=== PATIENT | female | born 1930 | race Caucasian/White ===

== ENCOUNTER 2017-04-02 10:30 | Observation (INO) | payer MEDICARE ==
[~2017-04-02] VITALS: Ht 154.9 cm; Wt 68.0 kg
[2017-04-02] VITALS (7 sets, daily range): BP systolic 116–158; BP diastolic 62–75; PULSE 67–75; RESP 16–18; TEMP 98.2–100.1; O2SAT 92–99
[~2017-04-02 10:30] MED LIST: ASPI81TA82 PO; ATEN-100 PO; ATOR10TA PO; CILO100T PO; DIOV160T60 PO; FLUT50SP EACH NARE; HYDR-2768 PO; LEXA10TA PO; NAME5TAB2 PO; NIFE1TAB85 PO; PROT40TA PO; SIMV20TA PO; TRAZ150T75 PO; [UNRECOGNIZED DRUG - OTHER]
[2017-04-02] MEDS ORDERED: ASPI81CH CHEW (10:48)
[2017-04-02] MEDS ORDERED: CILO100T PO (10:48)
[2017-04-02] MEDS ORDERED: CART120C PO (10:48)
[2017-04-02] MEDS ORDERED: ALPR.5 PO (10:48)
[2017-04-02] MEDS ORDERED: DIOV160T6 PO (10:48)
[2017-04-02] MEDS ORDERED: TRAZ100T6 PO (10:48)
[2017-04-02] MEDS ORDERED: LEXA20TA PO (10:48)
[2017-04-02] MEDS ORDERED: OXYB5TAB10 PO (10:48)
[2017-04-02] MEDS ORDERED: PROT40TA PO (10:48)
[2017-04-02] MEDS ORDERED: ATEN25TA PO (10:48)
[2017-04-02] MEDS ORDERED: SODIUM CHLORIDE 0.9% FLUSH 5 ML FLUSH IV FLUSH PRN (11:00)
[2017-04-02 11:15] LABS: AUTOMATED NEUTROPHIL # 10.1 TH/MM3 (1.8-7.7); BASOPHIL # 0.1 TH/MM3 (0-0.2); BASOPHIL % 0.7 % (0.0-2.0); EOSINOPHIL # 0.1 TH/MM3 (0-0.4); EOSINOPHIL % 0.5 % (0.0-4.0); HEMATOCRIT 32.6 % (35.0-46.0); HEMO FLAGS DIFF FINAL; LYMPH % 12.5 % (9.0-44.0); LYMPHOCYTE # 1.6 TH/MM3 (1.0-4.8); MEAN CELL VOLUME 92.1 FL (80.0-100.0); MEAN CORPUSCULAR HEMOGLOBIN 29.9 PG (27.0-34.0); MEAN CORPUSCULAR HGB CONC 32.4 % (32.0-36.0); MONO % 6.2 % (0.0-8.0); NEUT % 80.1 % (16.0-70.0); PLATELET COUNT 199 TH/MM3 (150-450); RED BLOOD COUNT 3.54 MIL/MM3 (4.00-5.30); RED CELL DISTRIBUTION WIDTH 14.1 % (11.6-17.2); WHITE BLOOD COUNT 12.6 TH/MM3 (4.0-11.0)
--- NOTE | 2017-04-02 11:25 | RADRPT ---
EXAM DATE/TIME: 04/02/2017 11:06 [facility] COMPARISON: ANKLE LEFT COMPLETE ([id number]), November 11, 2014, 18:57. INDICATIONS : Left hand pain/bruising/swelling post fall. MEDICAL HISTORY : Hypercholesterolemia. Diverticulitis. Gastroesophageal reflux disease. Hypertension. Ulcer. Arthr itis. SURGICAL HISTORY : Tonsillectomy. Appendectomy. Hysterectomy. ENCOUNTER: Initial ACUITY: 1 day PAIN SCORE: 8/10 LOCATION: Left hand FINDINGS: The osseous structures hand demonstrate advanced osteoarthritic changes of the carpometacarpal joint the base of the thumb and the distal interphalangeal joints of the first through fifth digits. Note is made of a moderately displaced fracture of the scaphoid. Note is made of an impacted, dorsally angulated fracture of the distal radius. Note is made of a mildly displaced fracture of the ulnar styloid. CONCLUSION: 1. Mildly displaced fracture of the scaphoid. 2. Impacted, dorsally angulated fracture of the distal radius. 3. Nondisplaced fracture of the ulnar styloid. Jose Bedolla MD on April 02, 2017 at 11:22 Board Certified Radiologist. This report was verified electronically.
--- NOTE | 2017-04-02 11:26 | RADRPT ---
EXAM DATE/TIME: 04/02/2017 11:07 [facility] COMPARISON: HAND LEFT COMPLETE ([id number]), April 02, 2017, 11:06. INDICATIONS : Left wrist pain/bruising/swelling post fall. MEDICAL HISTORY : Hypercholesterolemia. Diverticulitis. Gastroesophageal reflux disease. Arthritis. Ulcers. Hyperte nsion. SURGICAL HISTORY : Tonsillectomy. Appendectomy. Hysterectomy. ENCOUNTER: Initial ACUITY: 1 day PAIN SCORE: 7/10 LOCATION: Left wrist FINDINGS: There is a mildly displaced fracture of the scaphoid. There is a nondisplaced fracture of the ulnar styloid. There is a dorsally angulated, impacted fracture of the distal radius. Degenerative changes at the base of the thumb. CONCLUSION: 1. Fractures of the scaphoid, radius and ulnar styloid as above. Jose Bedolla MD on April 02, 2017 at 11:23 Board Certified Radiologist. This report was verified electronically.
[2017-04-02 11:39] LABS: ALT (GPT) 13 U/L (10-53)
[2017-04-02 11:41] LABS: ALKALINE PHOSPHATASE 79 U/L (45-117); TOTAL BILIRUBIN ADULT 0.8 MG/DL (0.2-1.0)
[2017-04-02 11:47] LABS: ANION GAP 9 MEQ/L (5-15); AST (GOT) 43 U/L (15-37); BICARBONATE 22.3 MEQ/L (21.0-32.0); BLOOD UREA NITROGEN 33 MG/DL (7-18); CHLORIDE 104 MEQ/L (98-107); GLOMERULAR FILTRATION RATE 27 ML/MIN (>89); SODIUM (NA) 135 MEQ/L (136-145)
--- NOTE | 2017-04-02 11:48 | RADRPT ---
EXAM DATE/TIME: 04/02/2017 11:20 [facility] COMPARISON: CT BRAIN W/O CONTRAST, November 11, 2014, 16:13. INDICATIONS : Fell last Saturday. Left posterior head pain. Altered mental status. RADIATION DOSE: 34.82 CTDIvol (mGy) MEDICAL HISTORY : Diverticulitis. Hypertension. SURGICAL HISTORY : Hysterectomy. ENCOUNTER: Initial ACUITY: 4 - 6 days PAIN SCALE: 0/10 LOCATION: cranial TECHNIQUE: Multiple contiguous axial images were obtained of the head. Using automated exposure control and adj ustment of the mA and/or kV according to patient size, radiation dose was kept as low as reasonably a chievable to obtain optimal diagnostic quality images. DICOM format image data is available electro nically for review and comparison. FINDINGS: CEREBRUM: Moderate cerebral atrophy. [id number] periventricular white matter hypodensities consistent wit h ischemic white matter demyelination. Nonspecific bilateral basal ganglia ossifications. The ventric les are normal for degree of atrophy. No evidence of midline shift, mass lesion, hemorrhage or acute infarction. No extra-axial fluid collections are seen. POSTERIOR FOSSA: The cerebellum and brainstem are intact. The 4th ventricle is midline. The cerebellopontine angle i s unremarkable. EXTRACRANIAL: The visualized portion of the orbits is intact. SKULL: The calvaria is intact. No evidence of skull fracture. CONCLUSION: 1. Senescent changes with periventricular small vessel ischemic white matter demyelination. 2. No acute intracranial abnormality. Heladio Adan MD on April 02, 2017 at 11:45 Board Certified Radiologist. This report was verified electronically.
[2017-04-02 11:49] LABS: POTASSIUM 4.6 MEQ/L (3.5-5.1)
[2017-04-02] MEDS ORDERED: SODIUM CHLOR 0.9% 1000 ML INJ 1,000 ML IV SCH (12:15)
--- NOTE | 2017-04-02 13:17 | PD ---
HPI Chief Complaint: Fall Time Seen by Provider: 10:43 Travel History International Travel<30 days: No Contact w/Intl Traveler<30days: No Traveled to known affect area: No History of Present Illness HPI This is an 86-year-old female who presents to the emergency department having had a fall 3 evenings ago hitting her head and injuring her left wrist and hand. Her daughter tried to take her to the emergency department but she refused. She's had persistent pain, swelling, moderate severity, constant, with no associated weakness or numbness in the hand. Her daughter reports that when she took her today to go get a portable x-ray there walking to the car and the patient blankly stared at her and got very pale. She was confused and disoriented and thought it was 1987 which is unlike her. EMS came to the house and took her blood pressure and it was in the 80s systolic. Subsequently the patient returned back to normal with no residual confusion. The patient's daughter reports that she has struggled with dehydration in the past. PFSH Past Medical History Arthritis: Yes Asthma: No Anxiety: No Depression: Yes Heart Rhythm Problems: No Cancer: No Cardiovascular Problems: Yes High Cholesterol: Yes Chemotherapy: No Chest Pain: No Congestive Heart Failure: No COPD: No Cerebrovascular Accident: No Diabetes: No Diminished Hearing: Yes (HEARING AIDS) Diverticulitis: Yes Endocrine: No Gastrointestinal Disorders: Yes GERD: Yes Genitourinary: No Hiatal Hernia: No Hypertension: Yes Kidney Stones: No Musculoskeletal: Yes (COMPRESSION FX THORACIC VERT.) Neurologic: No Psychiatric: Yes Reproductive: No Respiratory: Yes Migraines: No Radiation Therapy: No Renal Failure: No Seizures: No Sickle Cell Disease: No Sleep Apnea: No Thyroid Disease: No Ulcer: Yes Menopausal: Yes Past Surgical History Abdominal Surgery: Yes (APPENDECTOMY) AICD: No Appendectomy: Yes Arteriovenous Shunt: No Cardiac Surgery: No Ear Surgery: No Endocrine Surgery: No Eye Surgery: No Genitourinary Surgery: No Gynecologic Surgery: No Hysterectomy: Yes Insulin Pump: No Joint Replacement: No Oral Surgery: No Pacemaker: No Thoracic Surgery: No Tonsillectomy: Yes Other Surgery: Yes (NOSE SURGERY, HEMORRHOIDS) Social History Alcohol Use: No Tobacco Use: No ( ) Substance Use: No Allergies-Medications (Allergen,Severity, Reaction): Coded Allergies: No Known Allergies (Verified , 08/07/13) Reported Meds & Prescriptions Reported Meds & Active Scripts Active Reported Ditropan (Oxybutynin Chloride) 5 Mg Tab 5 Mg PO HS Trazodone (Trazodone HCl) 100 Mg Tablet 200 Mg PO HS Lexapro (Escitalopram Oxalate) 20 Mg Tab 20 Mg PO DAILY Protonix (Pantoprazole Sodium) 40 Mg Tab 40 Mg PO BID Xanax (Alprazolam) 0.5 Mg Tab 0.5 Mg PO BID PRN Cilostazol 100 Mg Tab 50 Mg PO BID Atenolol 25 Mg Tab 25 Mg PO DAILY Aspirin 81 Mg Chew 81 Mg CHEW DAILY Cartia Xt (Diltiazem ER 24 HR) 120 Mg Caper 180 Mg PO DAILY Diovan (Valsartan) 160 Mg Tab 160 Mg PO DAILY Review of Systems Except as stated in HPI: all other systems reviewed are Neg Physical Exam Narrative GENERAL:Well appearing, no acute distress SKIN: Ecchymoses over the left wrist and palmar surface of the left hand. HEAD: Atraumatic. Normocephalic. EYES: Pupils equal and round. No injection or drainage. ENT: Dry mucous membranes. NECK: Trachea midline. CARDIOVASCULAR: Regular rate and rhythm. No murmur appreciated. 2+ left radial pulse with normal capillary refill in the left hand. RESPIRATORY: Clear to auscultation. Breath sounds equal bilaterally. GASTROINTESTINAL: Abdomen soft, non-tender, nondistended. MUSCULOSKELETAL: Gross deformity to the left wrist NEUROLOGICAL: Awake and alert. No obvious cranial nerve deficits. No dysarthria or aphasia. No upper or lower extremity drift. No upper extremity ataxia. PSYCHIATRIC: Appropriate mood and affect; insight and judgment normal. Data Data Last Documented VS Vital Signs Date Time Temp Pulse Resp B/P (MAP) Pulse Ox O2 Delivery O2 Flow Rate FiO2 04/02/17 11:01 98 Room Air 04/02/17 10:38 99.1 74 16 116/75 (89) Orders Orders Electrocardiogram (04/02/17 10:51) Complete Blood Count With Diff (04/02/17 10:51) Comprehensive Metabolic Panel (04/02/17 10:51) Urinalysis - C+S If Indicated (04/02/17 10:51) Ct Brain W/O Iv Contrast(Rout) (04/02/17 10:51) Blood Glucose (04/02/17 10:51) Ecg Monitoring (04/02/17 10:51) Iv Access Insert/Monitor (04/02/17 10:51) Oximetry (04/02/17 10:51) Sodium Chloride 0.9% Flush (Ns Flush) (04/02/17 11:00) Wrist, Complete ([id number]) (04/02/17 ) Hand, Complete ([id number]) (04/02/17 ) Cath For Specimen (04/02/17 12:10) Sodium Chlor 0.9% 1000 Ml Inj (Ns 1000 M (04/02/17 12:15) Place In Observation (04/02/17 ) Code Status (04/02/17 13:21) Vital Signs (Adult) Q4H (04/02/17 13:21) Activity Oob With Assistance (04/02/17 13:21) Diet Npo (04/02/17 Lunch) Sodium Chloride 0.9% Flush (Ns Flush) (04/02/17 13:30) Sodium Chloride 0.9% Flush (Ns Flush) (04/02/17 21:00) Acetaminophen (Tylenol) (04/02/17 13:30) Ondansetron Inj (Zofran Inj) (04/02/17 13:30) Basic Metabolic Panel (Bmp) (04/03/17 06:00) Comprehensive Metabolic Panel (04/03/17 06:00) Chest, Single Ap (04/02/17 13:21) Electrocardiogram (04/02/17 13:21) Pt Request For Service (04/02/17 13:21) Scd Bilateral/Knee High JOCELIN.BID (04/02/17 13:21) Naloxone Inj (Narcan Inj) (04/02/17 13:30) Magnesium Hydroxide Liq (Milk Of Magnesi (04/02/17 13:30) Ns + Kcl 20 Meq Inj (Ns + Kcl 20 Meq Inj (04/02/17 14:00) Clonidine (Catapres) (04/02/17 13:30) Enalaprilat Inj (Vasotec Inj) (04/02/17 13:30) Aspirin Chew (Aspirin Chew) (04/03/17 09:00) Atenolol (Tenormin) (04/02/17 13:30) Escitalopram (Lexapro) (04/02/17 13:30) Oxybutynin (Ditropan) (04/02/17 21:00) Pantoprazole (Protonix) (04/02/17 13:30) Valsartan (Diovan) (04/02/17 13:30) Trazodone (Desyrel) (04/02/17 21:00) Atorvastatin (Lipitor) (04/02/17 21:00) Alprazolam (Xanax) (04/02/17 13:30) Cilostazol (Pletal) (04/02/17 21:00) Diltiazem Cd (Cardizem Cd) (04/02/17 13:30) Admit Order (Ed Use Only) (04/02/17 13:39) Splinting (04/02/17 ) Labs Laboratory Tests Test 04/02/17 11:00 04/02/17 13:00 White Blood Count 12.6 TH/MM3 Red Blood Count 3.54 MIL/MM3 Hemoglobin 10.6 GM/DL Hematocrit 32.6 % Mean Corpuscular Volume 92.1 FL Mean Corpuscular Hemoglobin 29.9 PG Mean Corpuscular Hemoglobin Concent 32.4 % Red Cell Distribution Width 14.1 % Platelet Count 199 TH/MM3 Mean Platelet Volume 9.3 FL Neutrophils (%) (Auto) 80.1 % Lymphocytes (%) (Auto) 12.5 % Monocytes (%) (Auto) 6.2 % Eosinophils (%) (Auto) 0.5 % Basophils (%) (Auto) 0.7 % Neutrophils # (Auto) 10.1 TH/MM3 Lymphocytes # (Auto) 1.6 TH/MM3 Monocytes # (Auto) 0.8 TH/MM3 Eosinophils # (Auto) 0.1 TH/MM3 Basophils # (Auto) 0.1 TH/MM3 CBC Comment DIFF FINAL Differential Comment Blood Urea Nitrogen 33 MG/DL Creatinine 1.77 MG/DL Random Glucose 145 MG/DL Total Protein 6.5 GM/DL Albumin 2.7 GM/DL Calcium Level 7.8 MG/DL Alkaline Phosphatase 79 U/L Aspartate Amino Transf (AST/SGOT) 43 U/L Alanine Aminotransferase (ALT/SGPT) 13 U/L Total Bilirubin 0.8 MG/DL Sodium Level 135 MEQ/L Potassium Level 4.6 MEQ/L Chloride Level 104 MEQ/L Carbon Dioxide Level 22.3 MEQ/L Anion Gap 9 MEQ/L Estimat Glomerular Filtration Rate 27 ML/MIN Urine Color YELLOW Urine Turbidity HAZY Urine pH 5.0 Urine Specific [place] 1.019 Urine Protein TRACE mg/dL Urine Glucose (UA) NEG mg/dL Urine Ketones NEG mg/dL Urine Occult Blood NEG Urine Nitrite NEG Urine Bilirubin NEG Urine Urobilinogen LESS THAN 2.0 MG/DL Urine Leukocyte Esterase NEG Urine RBC LESS THAN 1 /hpf Urine WBC 1 /hpf Urine Hyaline Casts 3 /lpf Microscopic Urinalysis Comment CATH-CULT NOT IND MDM Medical Decision Making Medical Screen Exam Complete: Yes Emergency Medical Condition: Yes Interpretation(s) Temperature is 99.1, no tachycardia, normotensive No leukocytosis Anemia Creatinine is 1.7 baseline creatinine is .88 BUN is 33 Differential Diagnosis Orthostatic hypotension, dehydration, TIA, seizure, distal radius fracture, scaphoid fracture, wrist sprain Narrative Course This is an 86-year-old female who presents to the emergency department having had an episode where she became disoriented and pale at home. It lasted for about 15 minutes and then subsided. She also had a fall 3 days ago and has a distal radius fracture and scaphoid fracture on x-ray. She has a normal neurovascular exam. Labs are obtained which demonstrate acute kidney injury with a creatinine of 1.7 compared to 0.8 in the past, greater than 50% reduction in GFR. Patient was given a liter of IV hydration. CT of the head was reassuring. I suspect her presyncope was in the setting of dehydration. Plan for admission for IV hydration and surgical consultation regarding the patient's extremity injury. Case was discussed with Dr. Lorenzana operations manager/coordinator for hand surgery who will come see the patient. Diagnosis Primary Impression: Distal radius fracture Qualified Codes: S52.532A - Colles' fracture of left radius, initial encounter for closed fracture Additional Impression: Scaphoid fracture Qualified Codes: S62.002A - Unspecified fracture of navicular [scaphoid] bone of left wrist, initial encounter for closed fracture Admitting Information Admitting Physician Requests: Admit Dione Richards MD Apr 02, 2017 13:17
[2017-04-02] MEDS ORDERED: ACETAMINOPHEN 325 MG TAB PO PRN (13:30)
[2017-04-02] MEDS: ATENOLOL 25 MG TAB PO SCH (13:30)
[2017-04-02] MEDS ORDERED: cloNIDine HCL 0.2 MG TAB PO PRN (13:30)
[2017-04-02] MEDS ORDERED: ALPRAZolam 0.5 MG TAB PO PRN (13:30)
[2017-04-02] MEDS ORDERED: SODIUM CHLORIDE 0.9% FLUSH 10 ML FLUSH IV FLUSH PRN (13:30)
[2017-04-02] MEDS: DILTIAZEM-CD 180 MG CAP ER PO SCH (13:30)
[2017-04-02] MEDS ORDERED: ONDANSETRON HCL 4 MG/2 ML VIAL IVP PRN (13:30)
[2017-04-02] MEDS ORDERED: ENALAPRILAT 1.25 MG/ML VIAL IV PRN (13:30)
[2017-04-02] MEDS ORDERED: MAGNESIUM HYDROXIDE SUSP 30 ML CUP PO PRN (13:30)
[2017-04-02] MEDS ORDERED: NALOXONE HCL 0.4 MG/ML AMP IV PRN (13:30)
[2017-04-02] MEDS: VALSARTAN 160 MG TAB PO SCH (13:30)
[2017-04-02 13:52] LABS: BLOOD, URINE NEG (NEG); COMMENT (UR) CATH-CULT NOT IND; CULTURE IF INDICATED CATH CULTURE NOT IND; GLUCOSE,URINE NEG (NEG); HYALINE CAST, URINE 3 /lpf (RARE); KETONE, URINE NEG (NEG); NITRITE,URINE NEG (NEG); URINE COLOR YELLOW (YELLW/STRAW)
[2017-04-02] MEDS: PANTOPRAZOLE SOD 40 MG DELAYED RELEASE TAB PO SCH ×2 (14:19→20:34)
[2017-04-02] MEDS: ESCITALOPRAM OXALATE 20 MG TAB PO SCH (14:19)
[2017-04-02] MEDS: NS + KCL 20 MEQ INJ 1,000 ML IV SCH (14:19)
--- NOTE | 2017-04-02 14:44 | RADRPT ---
EXAM DATE/TIME: 04/02/2017 13:57 [facility] COMPARISON: CHEST SINGLE AP, November 11, 2014, 15:06. INDICATIONS : Cough. MEDICAL HISTORY : None. SURGICAL HISTORY : None. ENCOUNTER: Initial ACUITY: 4 - 6 days PAIN SCORE: 0/10 LOCATION: Bilateral chest FINDINGS: A single view of the chest demonstrates the lungs to be symmetrically aerated without evidence of mas s, infiltrate or effusion. The cardiomediastinal contours are unremarkable. Osseous structures are intact. Atherosclerotic changes are again noted in the aorta. There is mild eventration of the right hemidiaphragm. CONCLUSION: No acute disease. Logan Camilo MD on April 02, 2017 at 14:42 Board Certified Radiologist. This report was verified electronically.
[2017-04-02] MEDS ORDERED: PROPOFOL 200 MG/20 ML AMP IV ONE (16:15)
[2017-04-02] MEDS ORDERED: PROPOFOL 1000 MG/100 ML INJ 100 ML ONE (16:21)
--- NOTE | 2017-04-02 16:31 | HHI.HP ---
HPI Service [facility] Hospitalists Primary Care Physician Roger Wheeler D.O. Admission Diagnosis dehydration Chief Complaint: Left wrist pain Travel History International Travel<30 Days: No Contact w/Intl Traveler <30 Da: No Traveled to Known Affected Are: No History of Present Illness Mrs. Villareal is an 86 y/o female with HTN, hyperlipidemia, depression and anxiety. Pt presented to the ED on 04/02/17 after having had a mechanical fall 3 days ago where she reportedly hit her head and injured her left wrist and hand. Her daughter tried to take her to the emergency department but she refused. She's had persistent pain and swelling, moderate in severity and constant, with no associated weakness or numbness in the hand since the initial injury. Her daughter reports that when she took her today to go get a portable x-ray there walking to the car and the patient blankly stared at her and got very pale. She was confused and disoriented and thought it was 1987. EMS came to the house and took her blood pressure and it was in the 80s systolic. Subsequently the patient returned back to normal with no residual confusion. The patient's daughter reports that she has struggled with dehydration in the past. Pts labs at admission noted BEV with Cr 1.77 which is much higher than baseline and her GFR is down to 27. Pt has been given 1L of IVF in the ED. Review of Systems Constitutional: DENIES: Fever, Chills Eyes: DENIES: Vision loss Ears, nose, mouth, throat: DENIES: Hearing loss Respiratory: DENIES: Cough, Shortness of breath Cardiovascular: DENIES: Chest pain, Palpitations, Lower Extremity Edema Gastrointestinal: DENIES: Abdominal pain, Constipation, Diarrhea, Nausea, Vomiting Musculoskeletal: COMPLAINS OF: Joint pain, Joint Swelling Integumentary: DENIES: Rash Neurologic: DENIES: Headache Psychiatric: COMPLAINS OF: Confusion Other Altered mental status Past Family Social History Past Medical History Anxiety Depression CKD, stage 3 Dependent edema GERD Macular degeneration HTN Hyperlipidemia MGUS Nontoxic multinodular goiter Osteoarthritis PVD Past Surgical History Appendectomy Cataract surgery Hemorrhoidectomy Tonsillectomy SAVANAH with BSO Lumbar facet block Reported Medications -Ditropan 5 Mg PO HS -Trazodone 200 Mg PO HS -Lexapro 20 Mg PO DAILY -Protonix 40 Mg PO BID -Xanax 0.5 Mg PO BID with a 3rd dose PRN -Cilostazol 50 Mg PO BID -Atenolol 25 Mg PO DAILY -Aspirin 81 Mg CHEW DAILY -Cartia Xt 180 Mg PO DAILY -Diovan 160 Mg PO DAILY Allergies: Coded Allergies: No Known Allergies (Verified , 08/07/13) Family History Mother with hx of CVA Social History Denies any alcohol or illicit drug use Pt with a hx of tobacco use Pt is a Pt lives alone but is supported by friends and her daughters Pt is unable to cook or drive herself. Physical Exam Vital Signs Vital Signs Date Time Temp Pulse Resp B/P (MAP) Pulse Ox O2 Delivery O2 Flow Rate FiO2 04/02/17 11:01 98 Room Air 04/02/17 10:38 99.1 74 16 116/75 (89) Physical Exam GENERAL: This is a well-nourished, well-developed patient, in no apparent distress. SKIN: No rashes, ecchymoses or lesions. Cool and dry. HEENT: Atraumatic. Normocephalic. No temporal or scalp tenderness. No scleral icterus. Airway patent. NECK: Trachea midline, supple, nontender. CARDIO: Regular. RESP: CTA bilaterally. No wheezes, rales, or rhonchi. ABD: +BS, soft, non-tender, nondistended. EXT: Extremities without clubbing, cyanosis, or edema. NEURO: Awake and alert. Motor and sensory grossly within normal limits. Normal speech. Laboratory Laboratory Tests Test 04/02/17 11:00 04/02/17 13:00 White Blood Count 12.6 Red Blood Count 3.54 Hemoglobin 10.6 Hematocrit 32.6 Mean Corpuscular Volume 92.1 Mean Corpuscular Hemoglobin 29.9 Mean Corpuscular Hemoglobin Concent 32.4 Red Cell Distribution Width 14.1 Platelet Count 199 Mean Platelet Volume 9.3 Neutrophils (%) (Auto) 80.1 Lymphocytes (%) (Auto) 12.5 Monocytes (%) (Auto) 6.2 Eosinophils (%) (Auto) 0.5 Basophils (%) (Auto) 0.7 Neutrophils # (Auto) 10.1 Lymphocytes # (Auto) 1.6 Monocytes # (Auto) 0.8 Eosinophils # (Auto) 0.1 Basophils # (Auto) 0.1 CBC Comment DIFF FINAL Differential Comment Blood Urea Nitrogen 33 Creatinine 1.77 Random Glucose 145 Total Protein 6.5 Albumin 2.7 Calcium Level 7.8 Alkaline Phosphatase 79 Aspartate Amino Transf (AST/SGOT) 43 Alanine Aminotransferase (ALT/SGPT) 13 Total Bilirubin 0.8 Sodium Level 135 Potassium Level 4.6 Chloride Level 104 Carbon Dioxide Level 22.3 Anion Gap 9 Estimat Glomerular Filtration Rate 27 Urine Color YELLOW Urine Turbidity HAZY Urine pH 5.0 Urine Specific [place] 1.019 Urine Protein TRACE Urine Glucose (UA) NEG Urine Ketones NEG Urine Occult Blood NEG Urine Nitrite NEG Urine Bilirubin NEG Urine Urobilinogen LESS THAN 2.0 Urine Leukocyte Esterase NEG Urine RBC LESS THAN 1 Urine WBC 1 Urine Hyaline Casts 3 Microscopic Urinalysis Comment CATH-CULT NOT IND Result Diagram: 04/02/17 1100 04/02/17 1100 Imaging Last Impressions Chest X-Ray 04/02/17 1321 Signed Impressions: Service Date/Time: Sunday, April 02, 2017 13:57 - CONCLUSION: No acute disease. Logan Camilo MD Head CT 04/02/17 1051 Signed Impressions: Service Date/Time: Sunday, April 02, 2017 11:20 - CONCLUSION: 1. Senescent changes with periventricular small vessel ischemic white matter demyelination. 2. No acute intracranial abnormality. Heladio Adan MD Wrist X-Ray 04/02/17 0000 Signed Impressions: Service Date/Time: Sunday, April 02, 2017 11:07 - CONCLUSION: 1. Fractures of the scaphoid, radius and ulnar styloid as above. Jose Bedolla MD Hand X-Ray 04/02/17 0000 Signed Impressions: Service Date/Time: Sunday, April 02, 2017 11:06 - CONCLUSION: 1. Mildly displaced fracture of the scaphoid. 2. Impacted, dorsally angulated fracture of the distal radius. 3. Nondisplaced fracture of the ulnar styloid. Jose Bedolla MD Septic Shock Reassessment Heart: Regular rate and rhythm Lungs: Clear Skin: Warm Caprini VTE Risk Assessment Caprini VTE Risk Assessment: Mod/High Risk (score >= 2) Caprini Risk Assessment Model Point Value = 1 Point Value = 2 Point Value = 3 Point Value = 5 Age 41-60 Minor surgery BMI > 25 kg/m2 Swollen legs Varicose veins or History of unexplained or recurrent spontaneous Oral contraceptives or hormone replacement Sepsis (< 1 month) Serious lung disease, including pneumonia (< 1 month) Abnormal pulmonary function Acute myocardial infarction Congestive heart failure (< 1 month) History of inflammatory bowel disease Medical patient at bed rest Age 61-74 Arthroscopic surgery Major open surgery (> 45 min) Laparoscopic surgery (> 45 min) Malignancy Confined to bed (> 72 hours) Immobilizing plaster cast Central venous access Age >= 75 History of VTE Family history of VTE Factor V Leiden Prothrombin [id number] Lupus anticoagulant Anticardiolipin antibodies Elevated serum homocysteine Heparin-induced thrombocytopenia Other congenital or acquired thrombophilia Stroke (< 1 month) Elective arthroplasty Hip, pelvis, or leg fracture Acute spinal cord injury (< 1 month) Prophylaxis Regimen Total Risk Factor Score Risk Level Prophylaxis Regimen 0-1 Low Early ambulation 2 Moderate Order ONE of the following: *Sequential Compression Device (SCD) *Heparin 5000 units SQ BID 3-4 Higher Order ONE of the following medications: *Heparin 5000 units SQ TID *Enoxaparin/Lovenox 40 mg SQ daily (WT < 150 kg, CrCl > 30 mL/min) *Enoxaparin/Lovenox 30 mg SQ daily (WT < 150 kg, CrCl > 10-29 mL/min) *Enoxaparin/Lovenox 30 mg SQ BID (WT < 150 kg, CrCl > 30 mL/min) AND/OR *Sequential Compression Device (SCD) 5 or more Highest Order ONE of the following medications: *Heparin 5000 units SQ TID (Preferred with Epidurals) *Enoxaparin/Lovenox 40 mg SQ daily (WT < 150 kg, CrCl > 30 mL/min) *Enoxaparin/Lovenox 30 mg SQ daily (WT < 150 kg, CrCl > 10-29 mL/min) *Enoxaparin/Lovenox 30 mg SQ BID (WT < 150 kg, CrCl > 30 mL/min) AND *Sequential Compression Device (SCD) Assessment and Plan Problem List: (1) Dehydration ICD Codes: E86.0 - Dehydration Status: Acute Plan: - Pt is an 86 y/o female with HTN, hyperlipidemia, depression and anxiety. - She presented to the ED on 04/02/17 after having had a fall 3 days ago where she did reportedly hit her head and injured her left wrist and hand but refused to go to the ED at that time for workup - Pt had persistent pain and swelling in the hand since the initial injury. - Her daughter reports that when she took her today to go get a portable x-ray there walking to the car and the patient blankly stared at her and got very pale and was confused and disoriented and thought it was 1986. Pt was hypotensive when EMS arrived with SBP in 80's but she returned back to normal with no residual confusion. - Head CT (04/02) --> Senescent changes with periventricular small vessel ischemic white matter demyelination. No acute intracranial abnormality. - Pts labs at admission indicate BEV possibly secondary to dehydration with Cr 1.77 which is much higher than baseline and her GFR is down to 27. - Pt has been given 1L of IVF in the ED. - She will be continued on IVF - Monitor labs closely - Pt was also found to have mildly displaced fracture of the scaphoid, impacted , dorsally angulated fracture of the distal radius, and nondisplaced fracture of the ulnar styloid. - Hand Surgery has been consulted regarding this. - Encourage oral intake - Supportive care - DVT prophylaxis with SCDs (2) BEV (acute kidney injury) ICD Codes: N17.9 - BEV (acute kidney injury) Status: Acute Plan: - See above (3) Distal radius fracture ICD Codes: S52.509A - Unspecified fracture of the lower end of unspecified radius, initial encounter for closed fracture Status: Acute Plan: - See Above (4) Scaphoid fracture ICD Codes: S62.009A - Unspecified fracture of navicular [scaphoid] bone of unspecified wrist, initial encounter for closedfracture Status: Acute Plan: - See above. (5) HTN (hypertension), benign ICD Codes: I10 - HTN (hypertension), benign Status: Acute Plan: - Home meds resumed - Monitor (6) Depression ICD Codes: F32.9 - Depression Status: Acute (7) Anxiety ICD Codes: F41.9 - Anxiety Status: Acute Assessment and Plan Patient examined. Assessment and plan formulated with Emily Velez PA-C. I agree with the above. Problem Qualifiers (1) Distal radius fracture: Qualified Codes: S52.532A - Colles' fracture of left radius, initial encounter for closed fracture (2) Scaphoid fracture: Qualified Codes: S62.002A - Unspecified fracture of navicular [scaphoid] bone of left wrist, initial encounter for closed fracture Emily Velez Apr 02, 2017 16:31 Carlos Benitez DO Apr 08, 2017 14:26
--- NOTE | 2017-04-02 17:05 | RADRPT ---
EXAM DATE/TIME: 04/02/2017 16:35 [facility] COMPARISON: WRIST LEFT COMPLETE ([id number]), April 02, 2017, 11:07. INDICATIONS : Post reduction. MEDICAL HISTORY : None. SURGICAL HISTORY : None. ENCOUNTER: Initial ACUITY: 1 day PAIN SCORE: 0/10 LOCATION: Left wrist FINDINGS: AP and lateral views of the left forearm were obtained and again demonstrate the comminuted fracture of the distal radius. The dorsal angulation of the distal fracture fragment has been reduced. The ali gnment is near-anatomic. The ulnar styloid fracture is again noted which is nondisplaced. There is ov erlying soft tissue swelling. There is diffuse osteopenia. Degenerative changes are again noted in th e first metacarpal carpal joint. CONCLUSION: Status post reduction. Logan Camilo MD on April 02, 2017 at 17:03 Board Certified Radiologist. This report was verified electronically.
[2017-04-02] MEDS: ACETAMINOPHEN/HYDROcodone 325 MG/5 MG TAB PO PRN (17:25)
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
[2017-04-02] MEDS: SODIUM CHLORIDE 0.9% FLUSH 10 ML FLUSH IV FLUSH SCH (20:33)
[2017-04-02] MEDS: OXYBUTYNIN CHLORIDE 5 MG TAB PO SCH (20:34)
[2017-04-02] MEDS: ATORVASTATIN 20 MG TAB PO SCH (20:34)
[2017-04-02] MEDS: traZODone HCL 100 MG TAB PO SCH (20:34)
[2017-04-02] MEDS: CILOSTAZOL 50 MG TAB PO SCH (22:05)
[2017-04-03] MEDS: NS + KCL 20 MEQ INJ 1,000 ML IV SCH ×2 (02:17→13:31)
[2017-04-03 03:30] VITALS: BP 163/71; PULSE 70; RESP 18; TEMP 98.1; O2SAT 87
[2017-04-03 07:07] VITALS: PULSE 80; RESP 18; TEMP 99.4; O2SAT 95
[2017-04-03] MEDS: ATENOLOL 25 MG TAB PO SCH (09:08)
[2017-04-03] MEDS: DILTIAZEM-CD 180 MG CAP ER PO SCH (09:08)
[2017-04-03] MEDS: CILOSTAZOL 50 MG TAB PO SCH ×2 (09:08→20:40)
[2017-04-03] MEDS: ASPIRIN 81 MG CHEW TAB CHEW SCH (09:08)
[2017-04-03] MEDS: PANTOPRAZOLE SOD 40 MG DELAYED RELEASE TAB PO SCH ×2 (09:08→20:40)
[2017-04-03] MEDS: ESCITALOPRAM OXALATE 20 MG TAB PO SCH (09:08)
[2017-04-03] MEDS: VALSARTAN 160 MG TAB PO SCH (09:08)
[2017-04-03] MEDS: SODIUM CHLORIDE 0.9% FLUSH 10 ML FLUSH IV FLUSH SCH ×2 (09:09→20:41)
[2017-04-03] MEDS: ACETAMINOPHEN/HYDROcodone 325 MG/5 MG TAB PO PRN ×2 (09:10→15:42)
[2017-04-03 10:52] LABS: ALKALINE PHOSPHATASE 77 U/L (45-117); ALT (GPT) 12 U/L (10-53); ANION GAP 8 MEQ/L (5-15); AST (GOT) 14 U/L (15-37); BICARBONATE 24.9 MEQ/L (21.0-32.0); BLOOD UREA NITROGEN 20 MG/DL (7-18); CHLORIDE 108 MEQ/L (98-107); GLOMERULAR FILTRATION RATE 54 ML/MIN (>89); POTASSIUM 3.9 MEQ/L (3.5-5.1); SODIUM (NA) 141 MEQ/L (136-145); TOTAL BILIRUBIN ADULT 0.5 MG/DL (0.2-1.0)
--- NOTE | 2017-04-03 11:01 | HHI.PR ---
Subjective Remarks Patient reports feeling well except for left arm pain 03/31 wants to go home reports that she has two daughters who live locally and take turns helping her in her home denies cough, congestion, dysuria or increased urinary frequency Objective Vitals Vital Signs Date Time Temp Pulse Resp B/P (MAP) Pulse Ox O2 Delivery O2 Flow Rate FiO2 04/03/17 07:07 99.4 80 18 95 04/03/17 03:30 98.1 70 18 163/71 (101) 87 04/02/17 23:26 98.2 75 18 152/70 (97) 92 04/02/17 19:26 98.4 67 18 151/63 (92) 94 04/02/17 17:09 100.1 72 16 158/62 (94) 95 04/02/17 16:30 99 4.00 04/02/17 16:30 99 04/02/17 15:53 98.7 68 18 145/66 (92) 96 04/02/17 11:01 98 Room Air Result Diagram: 04/02/17 1100 04/03/17 0905 Other Results Laboratory Tests Test 04/02/17 11:00 04/02/17 13:00 04/03/17 09:05 White Blood Count 12.6 TH/MM3 Red Blood Count 3.54 MIL/MM3 Hemoglobin 10.6 GM/DL Hematocrit 32.6 % Mean Corpuscular Volume 92.1 FL Mean Corpuscular Hemoglobin 29.9 PG Mean Corpuscular Hemoglobin Concent 32.4 % Red Cell Distribution Width 14.1 % Platelet Count 199 TH/MM3 Mean Platelet Volume 9.3 FL Neutrophils (%) (Auto) 80.1 % Lymphocytes (%) (Auto) 12.5 % Monocytes (%) (Auto) 6.2 % Eosinophils (%) (Auto) 0.5 % Basophils (%) (Auto) 0.7 % Neutrophils # (Auto) 10.1 TH/MM3 Lymphocytes # (Auto) 1.6 TH/MM3 Monocytes # (Auto) 0.8 TH/MM3 Eosinophils # (Auto) 0.1 TH/MM3 Basophils # (Auto) 0.1 TH/MM3 CBC Comment DIFF FINAL Differential Comment Blood Urea Nitrogen 33 MG/DL 20 MG/DL Creatinine 1.77 MG/DL 0.98 MG/DL Random Glucose 145 MG/DL 90 MG/DL Total Protein 6.5 GM/DL 6.5 GM/DL Albumin 2.7 GM/DL 2.7 GM/DL Calcium Level 7.8 MG/DL 8.3 MG/DL Alkaline Phosphatase 79 U/L 77 U/L Aspartate Amino Transf (AST/SGOT) 43 U/L 14 U/L Alanine Aminotransferase (ALT/SGPT) 13 U/L 12 U/L Total Bilirubin 0.8 MG/DL 0.5 MG/DL Sodium Level 135 MEQ/L 141 MEQ/L Potassium Level 4.6 MEQ/L 3.9 MEQ/L Chloride Level 104 MEQ/L 108 MEQ/L Carbon Dioxide Level 22.3 MEQ/L 24.9 MEQ/L Anion Gap 9 MEQ/L 8 MEQ/L Estimat Glomerular Filtration Rate 27 ML/MIN 54 ML/MIN Urine Color YELLOW Urine Turbidity HAZY Urine pH 5.0 Urine Specific [place] 1.019 Urine Protein TRACE mg/dL Urine Glucose (UA) NEG mg/dL Urine Ketones NEG mg/dL Urine Occult Blood NEG Urine Nitrite NEG Urine Bilirubin NEG Urine Urobilinogen LESS THAN 2.0 MG/DL Urine Leukocyte Esterase NEG Urine RBC LESS THAN 1 /hpf Urine WBC 1 /hpf Urine Hyaline Casts 3 /lpf Microscopic Urinalysis Comment CATH-CULT NOT IND Imaging Last Impressions Chest X-Ray 04/02/17 1321 Signed Impressions: Service Date/Time: Sunday, April 02, 2017 13:57 - CONCLUSION: No acute disease. Logan Camilo MD Head CT 04/02/17 1051 Signed Impressions: Service Date/Time: Sunday, April 02, 2017 11:20 - CONCLUSION: 1. Senescent changes with periventricular small vessel ischemic white matter demyelination. 2. No acute intracranial abnormality. Heladio Adan MD Wrist X-Ray 04/02/17 0000 Signed Impressions: Service Date/Time: Sunday, April 02, 2017 11:07 - CONCLUSION: 1. Fractures of the scaphoid, radius and ulnar styloid as above. Jose Bedolla MD Hand X-Ray 04/02/17 0000 Signed Impressions: Service Date/Time: Sunday, April 02, 2017 11:06 - CONCLUSION: 1. Mildly displaced fracture of the scaphoid. 2. Impacted, dorsally angulated fracture of the distal radius. 3. Nondisplaced fracture of the ulnar styloid. Jose Bedolla MD Objective Remarks GENERAL: This is a well-nourished, well-developed patient, in no apparent distress. CARDIO: Regular. RESP: CTA bilaterally. No wheezes, rales, or rhonchi. ABD: +BS, soft, non-tender, nondistended. EXT: Extremities without clubbing, cyanosis, or edema. left upper extremity dressing present dry and intact- brisk cap refill present NEURO: Awake and alert. Motor and sensory grossly within normal limits. Normal speech. Procedures 04/02 L arm s/p conscious sedation and closed reduction left distal radius with Dr. Lorenzana A/P Problem List: (1) Dehydration ICD Codes: E86.0 - Dehydration Status: Acute Plan: - Pt is an 86 y/o female with HTN, hyperlipidemia, depression and anxiety. - She presented to the ED on 04/02/17 after having had a fall 3 days ago where she did reportedly hit her head and injured her left wrist and hand but refused to go to the ED at that time for workup - Pt had persistent pain and swelling in the hand since the initial injury. - Her daughter reports that when she took her today to go get a portable x-ray there walking to the car and the patient blankly stared at her and got very pale and was confused and disoriented and thought it was 1986. Pt was hypotensive when EMS arrived with SBP in 80's but she returned back to normal with no residual confusion. - Head CT (04/02) --> Senescent changes with periventricular small vessel ischemic white matter demyelination. No acute intracranial abnormality. - Pts labs at admission indicate BEV possibly secondary to dehydration with Cr 1.77 which is much higher than baseline and her GFR is down to 27. - Pt has been given 1L of IVF in the ED. - DC IV fluids - repeat BMP improved creatinine 0.98, estimated GFR 54 - Pt was also found to have mildly displaced fracture of the scaphoid, impacted , dorsally angulated fracture of the distal radius, and nondisplaced fracture of the ulnar styloid. - Hand Surgery has been consulted patient underwent L arm s/p conscious sedation and closed reduction left distal radius with Dr. Lorenzana 04/02 and has been cleared for DC from hand surgery - Encourage oral intake - Supportive care - DVT prophylaxis with SCDs Plan to DC to SNF this evening if BP stable and patient afebrile (2) BEV (acute kidney injury) ICD Codes: N17.9 - BEV (acute kidney injury) Status: Acute Plan: - See above (3) Distal radius fracture ICD Codes: S52.509A - Unspecified fracture of the lower end of unspecified radius, initial encounter for closed fracture Status: Acute Plan: - See Above (4) Scaphoid fracture ICD Codes: S62.009A - Unspecified fracture of navicular [scaphoid] bone of unspecified wrist, initial encounter for closedfracture Status: Acute Plan: - See above. (5) HTN (hypertension), benign ICD Codes: I10 - HTN (hypertension), benign Status: Acute Plan: - Home meds resumed - Monitor (6) Depression ICD Codes: F32.9 - Depression Status: Acute (7) Anxiety ICD Codes: F41.9 - Anxiety Status: Acute Assessment and Plan DC patient to SNF in stable condition patient instructed NW, no lifting and no elevation of left wrist Keep splint in place, followup hand surgery and PCP in 1 week Patient and daughter requesting SNF placement at [facility]- per case management they will bed tomorrow plan to DC tomorrow to SNF Patient examined. Assessment and plan formulated with Evelin Paiz PA-C. I agree with the above. Problem Qualifiers (1) Distal radius fracture: Qualified Codes: S52.532A - Colles' fracture of left radius, initial encounter for closed fracture (2) Scaphoid fracture: Qualified Codes: S62.002A - Unspecified fracture of navicular [scaphoid] bone of left wrist, initial encounter for closed fracture Evelin Paiz Apr 03, 2017 11:01 Carlos Benitez DO Apr 08, 2017 14:25
[2017-04-03 11:08] VITALS: BP 136/73; PULSE 62; RESP 16; TEMP 96.4; O2SAT 95
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
[2017-04-03] MEDS ORDERED: HYDR-3516 PO (15:29)
[2017-04-03] MEDS ORDERED: ALPR.5 PO (15:31)
[2017-04-03 15:36] VITALS: BP 147/67; PULSE 57; RESP 16; TEMP 98.3; O2SAT 95
[2017-04-03 19:33] VITALS: BP 130/61; PULSE 60; RESP 18; TEMP 98.2; O2SAT 91
[2017-04-03] MEDS: ATORVASTATIN 20 MG TAB PO SCH (20:40)
[2017-04-03] MEDS: OXYBUTYNIN CHLORIDE 5 MG TAB PO SCH (20:40)
[2017-04-03] MEDS: traZODone HCL 100 MG TAB PO SCH (20:40)
[2017-04-03] MEDS: DOCUSATE SODIUM 50 MG/SENNA 8.6 MG TAB PO SCH (20:41)
--- NOTE | 2017-04-03 22:00 | EKG ---
Date Performed: 04/02/2017 Time Performed: 10:44:12 PTAGE: 86 years EKG: Sinus rhythm WITH FIRST DEGREE AV BLOCK WITH OCCASIONAL SUPRAVENTRICULAR PREMATURE COMPLEXES NONSPECIFIC T-WAVE A BNORMALITY ABNORMAL ECG PREVIOUS TRACING : 11/11/2014 15.34 Compared to prior tracing no significant change DOCTOR: Vladimir Leon Interpretating Date/Time 04/03/2017 21:58:08
[2017-04-04] MEDS: NS + KCL 20 MEQ INJ 1,000 ML IV SCH ×2 (01:18→12:27)
[2017-04-04 04:52] VITALS: PULSE 73; RESP 18; TEMP 98.6; O2SAT 95
[2017-04-04] MEDS: ACETAMINOPHEN/HYDROcodone 325 MG/5 MG TAB PO PRN ×2 (06:26→10:35)
--- NOTE | 2017-04-04 07:29 | MP ---
cc: MICHELLE LORENZANA DATE OF SURGERY 04/02/2017 PREOPERATIVE DIAGNOSIS 1. Closed intra-articular displaced fracture of the left distal radius. 2. Nondisplaced fracture left scaphoid POSTOPERATIVE DIAGNOSIS 1. Closed intra-articular displaced fracture of the left distal radius. 2. Nondisplaced fracture left scaphoid PROCEDURE Closed reduction and splinting closed displaced fracture left intra-articular distal radius fracture. SURGEON Dr. Michelle Lorenzana CONSENT Informed consent was obtained. Per x-ray, the patient had a closed displaced fracture of the left distal radius and a nondisplaced fracture of the left scaphoid. Treatment options were discussed with the patient and her daughters and they requested conservative treatment and declined surgical intervention due to her age, prior adair and comorbidities. PROCEDURE NOTE Conscious sedation was performed by the emergency room physician. Then using manipulation, the fracture was reduced and confirmed under fluoroscopy and a well-padded long-arm sugar-tong splint was placed with a thumb spica. The patient tolerated the procedure without any complications. She denies any paresthesias. She will remain in the hospital for the medical team and then may be discharged for follow up in the office and likely casting. The family understands she is at risk for persistent displacement, nonunion, malunion, avascular necrosis of the scaphoid and again they elected to proceed with conservative treatment. MD ARIE Stern/MANISH /5:51 PM /7:17 AM CECI
[2017-04-04] MEDS: DILTIAZEM-CD 180 MG CAP ER PO SCH (08:53)
[2017-04-04] MEDS: VALSARTAN 160 MG TAB PO SCH (08:53)
[2017-04-04] MEDS: ASPIRIN 81 MG CHEW TAB CHEW SCH (08:54)
[2017-04-04] MEDS: CILOSTAZOL 50 MG TAB PO SCH (08:54)
[2017-04-04] MEDS: DOCUSATE SODIUM 50 MG/SENNA 8.6 MG TAB PO SCH (08:54)
[2017-04-04] MEDS: ATENOLOL 25 MG TAB PO SCH (08:54)
[2017-04-04] MEDS: PANTOPRAZOLE SOD 40 MG DELAYED RELEASE TAB PO SCH (08:54)
[2017-04-04] MEDS: ESCITALOPRAM OXALATE 20 MG TAB PO SCH (08:54)
[2017-04-04] MEDS: SODIUM CHLORIDE 0.9% FLUSH 10 ML FLUSH IV FLUSH SCH (08:58)
[2017-04-04 09:08] VITALS: BP 172/74; PULSE 66; RESP 18; TEMP 98.2; O2SAT 95
[2017-04-04] MEDS ORDERED: BISACODYL 10 MG SUPP RECTAL PRN (09:15)
[2017-04-04] MEDS ORDERED: SENN1TAB PO (10:47)
[2017-04-04 12:01] VITALS: BP 156/85; PULSE 85; RESP 18; TEMP 99.3; O2SAT 99
== END 2017-04-04 15:54 ==
LOC: NEPC 10:30 → INTOOBSV 13:23 → NEDA 13:23 → UNDOADMIN 13:40 → NEPGCP 15:19 → NEDA 15:19
PROVIDERS: ADMIT Hospitalist; ATTEND Hospitalist
DX: S52.532A Colles' fracture of left radius, initial encounter for closed fracture (principal); S62.002A Unspecified fracture of navicular [scaphoid] bone of left wrist, initial encounter for closed fracture; S52.616A Nondisplaced fracture of unspecified ulna styloid process, initial encounter for closed fracture; N18.3 Chronic kidney disease, stage 3 (moderate); N17.9 Acute kidney failure, unspecified; K21.9 Gastro-esophageal reflux disease without esophagitis; W18.30XA Fall on same level, unspecified, initial encounter; Z87.891 Personal history of nicotine dependence; I12.9 Hypertensive chronic kidney disease with stage 1 through stage 4 chronic kidney disease, or unspecified chronic kidney disease
CPT/HCPCS: 25605; 70450; 71010; 73100; 73110; 73130; 80053; 81001; 85025; 93005; 96365; 96366; 97162; 97167; 99285; G0378; G8987; G8988; J3480; J7030; L3808; P9612